=== PATIENT | female | born 1960 | race Caucasian/White ===

== ENCOUNTER 2025-07-29 04:33 | Outpatient (CLI) | payer BC, SELFPAY ==
--- NOTE | 2025-07-29 06:30 | DI.RAD_ITS ---
Exam(s) XR FOOT LT COMPLETE EXAM: XR FOOT LT COMPLETE CLINICAL HISTORY: Left foot pain,m79.672. TECHNIQUE: 2D digital imaging was performed. COMPARISON: CR XR FOOT RT COMPLETE from 07/29/2025 FINDINGS: 3 views No evidence of fracture or diastasis of the Lisfranc joint. Benign bone island is noted in the middle cuneiform. There is some soft tissue swelling medial to the head of the great toe metatarsal. There is no overlying skin ulcer. There are mild degenerative changes in the great toe metatarsophalangeal joint. Other articulations appear unremarkable including the midfoot articulations. There is no pes planus. Moderate size inferior calcaneal spur noted. Also enthesophyte at the posterior calcaneus Achilles insertion site noted. Bone density normal. No osseous lesions. IMPRESSION: There is soft tissue swelling medial to the head of the great toe metatarsal, similar to the opposite side. There is no evidence of radiopaque foreign body nor osteomyelitis in the head of the great toe metatarsal. There is a subtle small calcification off the medial aspect of the great toe metatarsophalangeal joint. This is smaller than what is similar seen on the opposite side. See separate right foot report DATA REPOSITORY: RADIATION DOSE DELIVERED:
--- NOTE | 2025-07-29 06:30 | DI.RAD_ITS ---
Exam(s) XR FOOT RT COMPLETE EXAM: XR FOOT RT COMPLETE CLINICAL HISTORY: Right foot pain,m79.671. TECHNIQUE: 2D digital imaging was performed. COMPARISON: No exams were available for comparison FINDINGS: 3 views No evidence of fracture or diastasis of the Lisfranc joint. There is soft tissue swelling medial to the head of the great toe metatarsal, similar to the opposite side. However, there is thin calcific density in the deep soft tissues at this level adjacent to the medial aspect of the head of the great toe metatarsal, this measuring approximately 1.2 cm length by less than 0.2 cm wide. This parallels the immediately adjacent cortical surface of the great toe metatarsal head. There are no erosions at this level and there are only mild degenerative changes in the metatarsophalangeal joint of the great toe. Other articulations of the foot including midfoot articulations appear unremarkable. There is no pes planus evident. No inferior calcaneal spur. No enthesophyte on the posterior calcaneus. Small benign bone island noted in the posterior calcaneus. IMPRESSION: Soft tissue findings just medial to the head of the great toe metatarsal, somewhat similar to the opposite side although there is a longer strip of deep soft tissue calcification immediately adjacent to and parallel to the head of the great toe metatarsal at this level. No associated bone erosions nor evidence of osteomyelitis. This finding is not typical of gouty arthritis although cannot completely exclude this. DATA REPOSITORY: RADIATION DOSE DELIVERED:
== END 2025-07-29 04:53 ==
PROVIDERS: PCP Internal Medicine; Visit Provider Podiatrist
DX: M79.671 Pain in right foot (principal); M79.672 Pain in left foot
CPT/HCPCS: 73630